=== PATIENT | female | born 1925 | race Caucasian/White ===

== ENCOUNTER → 2016-04-09 | Outpatient (CLI) | payer MEDICARE, OTHER ==
--- NOTE | 2016-04-09 16:48 | PN ---
This is an 89-year-old female patient with a known history of sleep apnea, a combination of obstructive and central, with ( ) apnea/hypopnea index of 34. The patient was evaluated and treated by Dr. Alexandre in the past, and today she is seeing me in followup. Her last evaluation was in September of 2015. Currently the patient is on a BiPAP at a pressure of 11/7 cm of water. I checked her compliance data and her CPAP use for the past 30 months; average 6.7 hours per night. Her CPAP use for more than 4 hours is 100%. Her leak factor is 24 L/minute. She is still having some occasional central events, yet not a considerably high number. Clinically she is feeling much better. She is not snoring. She is waking up refreshed and alert during the day. Her humidity level is set at 8 and she is looking to see if there are any other alternative masks other than her AirFit P10 nasal pillow. Her comorbid conditions include hypothyroidism, hyperlipidemia and hypertension. BP is 151/73, pulse 73, respirations 18, temperature 97.6. Saturation is 95% on room air. Weight is 120. Height is 60 inches. BMI is 23.4. Temperature 97.6. GENERAL APPEARANCE: Calm, comfortable. HEENT: Short neck. Crowding of posterior pharynx. No goiter or neck mass. LUNGS: Diminished breath sounds bilaterally; otherwise clear. Heart sounds are regular rate and rhythm. Normal S1, S2. No S3. No S4. No murmurs. ABDOMEN: Soft, nontender. No organomegaly. EXTREMITIES: No edema. No cyanosis or clubbing. IMPRESSION: 1. Severe sleep apnea, obstructive and central, with an apnea/hypopnea index of 36, currently on BiPAP with a pressure of 11/7 cm of water, with good clinical response and compliance. 2. Hypothyroidism. 3. Hyperlipidemia. 4. Hypertension. PLAN: Will try this patient on a full-face mask, knowing that she is having some issues with mouth dryness despite her humidity level being at 8 and she is using heated tubing set at a temperature of 82 degrees Fahrenheit. I am going to give the patient a trial of AirFit P10 full-face mask. This will be an option. If she fails to respond to the full-face mask, she can go back to her AirFit P10 nasal pillows. I will see her back in a year's time in followup otherwise. Her treatment remains successful.
== END | disposition home or self-care (01) ==
LOC: SLEEP 13:11
PROVIDERS: ATTEND Internal Medicine Critical Care Medicine
DX: G47.33 Obstructive sleep apnea (adult) (pediatric) (principal); G47.31 Primary central sleep apnea; E03.9 Hypothyroidism, unspecified; E78.5 Hyperlipidemia, unspecified; I10 Essential (primary) hypertension

== ENCOUNTER 2016-07-03 07:02 | Day surgery (SDC) | payer MEDICARE, OTHER ==
[2016-06-27 15:14] VITALS: BMI 16.5
[2016-07-03 07:24] VITALS: RESP 16; TEMP 98
[2016-07-03] MEDS ORDERED: LACTATED RINGERS 1,000 ML IV ONE (07:40)
[2016-07-03] MEDS ORDERED: LIDOCAINE 1% 20 ML VIAL (10MG/ML) FOR IV START INTRADERMA ONE (07:41)
[2016-07-03] MEDS ORDERED: PROPOFOL 10 MG/ML 20 ML VIAL IV ONE (07:48)
--- NOTE | 2016-07-03 07:53 | P.GSHP ---
History of Present Illness H&P Date: 07/03/16 Chief Complaint: GI bleed, hemorrhoids This 89-year-old female who presents today for colonoscopy. She's had issues with rectal bleeding. Patient is a known history of internal and external a hemorrhoids. - Constitutional Constitutional: Reports as per HPI Past Medical History Past Medical History: Osteoarthritis (OA), Thyroid Disorder Additional Past Medical History / Comment(s): CONSTIPATION History of Any Multi-Drug Resistant Organisms: None Reported Past Surgical History: Appendectomy, Cholecystectomy, Hysterectomy Past Anesthesia/Blood Transfusion Reactions: No Reported Reaction Past Psychological History: No Psychological Hx Reported Smoking Status: Never smoker Past Alcohol Use History: None Reported Past Drug Use History: None Reported - Past Family History Daughter(s) Family Medical History: Cancer Additional Family Medical History / Comment(s): LIVER CANCER Sister(s) Family Medical History: Cancer Brother(s) Family Medical History: Cancer Medications and Allergies Home Medications Medication Instructions Recorded Confirmed Type Levothyroxine Sodium [Synthroid] 100 mcg PO DAILY 06/27/16 07/03/16 History Allergies Allergy/AdvReac Type Severity Reaction Status Date / Time iodine Allergy Swelling Verified 07/03/16 07:24 Milk Containing Products Allergy Cough Verified 07/03/16 07:24 Surgical - Exam Vital Signs Temp Pulse Resp BP Pulse Ox 98 F 75 16 182/74 97 07/03/16 07:23 07/03/16 07:23 07/03/16 07:23 07/03/16 07:23 07/03/16 07:23 - General well developed, well nourished, no distress - Eyes PERRL - ENT normal pinna - Neck no masses - Respiratory normal expansion - Cardiovascular Rhythm: regular - Abdomen Abdomen: soft, non tender Assessment and Plan Plan: GI bleed. We'll perform colonoscopy.
--- NOTE | 2016-07-03 08:05 | P.OP ---
Date of Procedure: 07/03/16 Preoperative Diagnosis: GI bleed Postoperative Diagnosis: External hemorrhoids Poor colonic prep Procedure(s) Performed: Attempted colonoscopy Anesthesia: MAC Surgeon: Jann Feliz Pathology: none sent Condition: stable Disposition: PACU Description of Procedure: The patient's placed on the endoscopy table in the lateral position. She received IV sedation. Digital rectal exam was performed which revealed a large amount of stool in the rectum. At this point the procedure was aborted.
[2016-07-03 08:29] VITALS: BP 170/74; PULSE 78
== END 2016-07-03 09:14 | disposition home or self-care (01) ==
LOC: ORWHC2ENDO 07:02
PROVIDERS: ATTEND Surgery
DX: K64.4 Residual hemorrhoidal skin tags (principal); Z53.09 Procedure and treatment not carried out because of other contraindication; K59.00 Constipation, unspecified; E07.9 Disorder of thyroid, unspecified; G47.33 Obstructive sleep apnea (adult) (pediatric); Z79.899 Other long term (current) drug therapy
CPT/HCPCS: 45378; J2704

== ENCOUNTER 2016-07-04 08:37 | Day surgery (SDC) | payer MEDICARE ==
[2016-07-04 09:00] VITALS: TEMP 96.2
[2016-07-04] MEDS ORDERED: LACTATED RINGERS 1,000 ML IV ONE (09:09)
[2016-07-04] MEDS ORDERED: LIDOCAINE 1% 20 ML VIAL (10MG/ML) FOR IV START INTRADERMA ONE (09:10)
[2016-07-04] MEDS ORDERED: LIDOCAINE 1% INJ 10MG/ML (20 ML MDV) ONE (09:48)
[2016-07-04] MEDS ORDERED: PROPOFOL 10 MG/ML 20 ML VIAL IV ONE (09:48)
--- NOTE | 2016-07-04 10:00 | P.GSHP ---
History of Present Illness H&P Date: 07/04/16 Chief Complaint: GI bleed, hemorrhoids This 89-year-old female who presents today for colonoscopy. Patient was initially scheduled for colonoscopy yesterday. However she had a very poor prep in the colonoscopy could not be completed. She reprepped last night and presents today for colonoscopy. - Constitutional Constitutional: Reports as per HPI Past Medical History Past Medical History: Osteoarthritis (OA), Thyroid Disorder Additional Past Medical History / Comment(s): CONSTIPATION History of Any Multi-Drug Resistant Organisms: None Reported Past Surgical History: Appendectomy, Cholecystectomy, Hysterectomy Past Anesthesia/Blood Transfusion Reactions: No Reported Reaction Past Psychological History: No Psychological Hx Reported Smoking Status: Never smoker Past Alcohol Use History: None Reported Past Drug Use History: None Reported - Past Family History Daughter(s) Family Medical History: Cancer Additional Family Medical History / Comment(s): LIVER CANCER Sister(s) Family Medical History: Cancer Brother(s) Family Medical History: Cancer Medications and Allergies Home Medications Medication Instructions Recorded Confirmed Type Levothyroxine Sodium [Synthroid] 100 mcg PO DAILY 06/27/16 07/04/16 History Allergies Allergy/AdvReac Type Severity Reaction Status Date / Time iodine Allergy Swelling Verified 07/03/16 07:24 Milk Containing Products Allergy Cough Verified 07/03/16 07:24 Surgical - Exam Vital Signs Temp Pulse Resp BP Pulse Ox 96.2 F L 76 16 177/84 97 07/04/16 08:57 07/04/16 08:57 07/04/16 08:57 07/04/16 08:57 07/04/16 08:57 - General well developed, no distress - Eyes PERRL - ENT normal pinna - Neck no bruits - Respiratory normal expansion - Cardiovascular Rhythm: regular - Abdomen Abdomen: soft, non tender Assessment and Plan Plan: GI bleed. We'll perform colonoscopy.
--- NOTE | 2016-07-04 10:08 | P.OP ---
Date of Procedure: 07/04/16 Preoperative Diagnosis: GI bleed Postoperative Diagnosis: Large amount of stool rectum, poor colon prep Procedure(s) Performed: Aborted colonoscopy Anesthesia: MAC Surgeon: Jann Feliz Pathology: none sent Condition: stable Description of Procedure: The patient's placed on the endoscopy table in the lateral position. She received IV sedation. Digital rectal exam was performed which revealed a large amount of stool in the rectum. The rectal vault had solid stool within it. And there was also a large amount liquid stool. The colonoscopy was not performed.
[2016-07-04 10:53] VITALS: RESP 18
[2016-07-04 11:39] VITALS: BP 155/67; PULSE 78
== END 2016-07-04 11:53 | disposition home or self-care (01) ==
LOC: ORWHC2ENDO 08:37
PROVIDERS: ATTEND Surgery
DX: K92.2 Gastrointestinal hemorrhage, unspecified (principal); E07.9 Disorder of thyroid, unspecified; G47.33 Obstructive sleep apnea (adult) (pediatric); Z79.899 Other long term (current) drug therapy; Z91.011 Allergy to milk products; Z91.09 Other allergy status, other than to drugs and biological substances
CPT/HCPCS: 45378; J2001; J2704